=== PATIENT | male | born 1955 | race Caucasian/White ===

== ENCOUNTER 2021-12-15 19:41 | Emergency (ER) | payer MEDICARE, SELFPAY ==
--- NOTE | 2021-12-15 19:44 | ED.MALEGU ---
HPI - Male Genitourinary General Chief complaint: Urogenital-Male Stated complaint: Urinary Problem Time Seen by Provider: 12/15/21 19:50 Source: patient and RN notes reviewed Mode of arrival: ambulatory Limitations: no limitations History of Present Illness HPI Narrative: 66-year-old male with a history of chronic severe spinal stenosis and hypertension presents to the [facility] with urinary issues for a week and a half States he has had some urinary frequency and groin burning over the last 10 days. Denies any new abdominal pain. No nausea or vomiting. Denies any diarrhea or loss of bowel control Patient has a very unsteady gait, appears nontoxic. Related Data Home Medications Medication Instructions Recorded Confirmed lisinopril 20 mg tablet mg 12/15/21 oxycodone 10 mg tablet mg 12/15/21 Allergies Allergy/AdvReac Type Severity Reaction Status Date / Time No Known Allergies Allergy Unverified 07/24/16 21:21 Review of Systems Review of Systems: All systems reviewed & are unremarkable except as noted in HPI and below Constitutional: Constitutional: Reports no additional constitutional complaints, Denies chills and Denies fever(s) Eyes: Eyes: Reports no additional eye complaints ENT: Reports system reviewed and no additional complaints, except as documented Cardiovascular: Cardiovascular: Reports no additional cardiovascular complaints Respiratory: Respiratory: Reports no additional respiratory complaints Gastrointestinal: Gastrointestinal: Reports no additional gastrointestinal complaints Genitourinary: Genitourinary: Reports as per HPI, Denies testicular pain, Reports urinary frequency and Reports urinary incontinence Musculoskeletal: Musculoskeletal: Reports no additional musculoskeletal complaints Integumentary/Breasts: Skin/Breast: Reports system reviewed and no additional complaints, except as docu Neurologic: Reports system reviewed and no additional complaints, except as documented Psychiatric: Psychiatric: Reports no additional psychiatric complaints Allergic/Immunologic: Allergic/Immunologic: Reports no additional allergic/immunologic complaints PMFSH Past Medical History Medical History Hypertension Spinal stenosis Comments At the time of my signature, I reviewed and agree with the nursing past medical, surgical, social, and family history. There is no relevant family history pertinent to the patient complaint. Exam Const: General: no acute distress, alert and ill appearing chronically Nutritional Appearance: well nourished and obese Orientation/consciousness: patient oriented x3 Limitations: no limitations HENMT: Head: normal to inspection Ears: external ears normal General nose exam: Normal external nose present Eyes: General: appearance normal, both eyes and all related structures Pupils: Equal, round and reactive pupils present Neck: Neck: normal visual inspection, no lymphadenopathy and no meningeal signs Chest: Chest palpation & inspection: normal inspection of the chest Resp: Effort & Inspection: normal respiratory effort and no use of accessory muscles Auscultation: clear to auscultation bilaterally, no crackles, no rales, no rhonchi, no wheezes and diminished lung sounds bilateral throughout Cardio: Rate: regular rate Rhythm: regular rhythm GI: GI Palp: Yes Soft to palpation and No Tenderness to palpation present (GI) Skin: General skin exam: normal color Rashes: no rashes Wounds: no wounds Neuro: General: patient oriented x3, moves all extremities, no meningeal signs and no focal motor deficits Cranial nerves: Yes Equal, round and reactive pupils present Speech: normal speech Gait exam (Neuro): Normal gait present Extrem: General: normal to inspection, full ROM and capillary refill normal Psych: Appearance: grossly normal and well kempt Mental Status: mental status grossly normal Affect: normal
[2021-12-15 19:50] VITALS: BP 153/86; PULSE 95; RESP 20; TEMP 36.7; O2SAT 100
== END 2021-12-15 20:27 | disposition home or self-care (01) ==
PROVIDERS: Emergency Provider Nurse Practitioner
DX: R35.0 Frequency of micturition (principal); R31.9 Hematuria, unspecified; I10 Essential (primary) hypertension; M48.00 Spinal stenosis, site unspecified
CPT/HCPCS: 81003; 99202; G0463

== ENCOUNTER 2023-03-31 12:20 | Outpatient (NON) | payer MEDICARE, SELFPAY ==
[2023-03-31 13:14] LABS: Appearance Urine Clear (Clear); Bilirubin Urine Negative (Negative); Blood Urine Trace-Intact (Negative); Color Urine Light Yellow (Yellow); Glucose Urine UA Negative (Negative); Ketones Urine Negative (Negative); Leukocyte Esterase Ur 1+ (Negative); Nitrate Urine Positive (Negative); Protein Urine Negative (Negative); Specific Grav Ur 1.015 (1.010-1.020); Urobilinogen Urine 0.2 mg/dL (0.2-1.0)
[2023-03-31 13:20] LABS: Add Urine Microscopic? YES; Amorphous Sediment Urine Moderate; Bacteria Urine 3+ /hpf; RBC Urine 0-2 /hpf (0-2); Squamous Epithelial Cell Urine Occasional /hpf (Few); WBC Clumps Urine Present /hpf; WBC Urine 16-20 /hpf (0-3)
== END 2023-03-31 12:21 | disposition home or self-care (01) ==
LOC: CHSLAB 12:22
PROVIDERS: PCP Nurse Practitioner; Visit Provider Nurse Practitioner
DX: R30.9 Painful micturition, unspecified (principal); R53.83 Other fatigue; R41.0 Disorientation, unspecified
CPT/HCPCS: 81001; 87086; 87088

== ENCOUNTER 2023-07-04 12:36 | Outpatient (CLI) | payer MEDICARE, SELFPAY ==
--- NOTE | ~2023-07-04 | CT_ITS ---
EXAMINATION: CT abdomen pelvis wo/w con DATE: 07/04/2023 13:35 INDICATION: Urinary retention TECHNIQUE: Computed tomography (CT) of the abdomen and pelvis was performed without intravenous contr ast. CT of the abdomen and pelvis was then performed with a total of 130 mL Omnipaque-350 intravenous contrast using a double-bolus technique for simultaneous opacification of the renal parenchyma and r enal collecting system. The dose-length product was 2384.99 mGy-cm. COMPARISON: None FINDINGS: Mild dependent atelectasis in the bilateral lower lobes. Mild cardiomegaly. Small amount of atheroscl erotic coronary artery calcifications. No pericardial or pleural effusion. There are few subcentimete r low-attenuation hepatic cyst. Gallbladder, spleen, pancreas and bilateral adrenal glands are normal . Kidneys and ureters are normal with no urolithiasis, hydroureteronephrosis or perinephric/ureteral stranding. Contrast opacifies entire right ureter and the proximal two thirds of the left ureter. No urothelial irregularities identified at the lateral renal collecting systems or contrast opacified po rtions of the ureters. Bladder is normal. Bowels including the appendix are normal. No free intraperi toneal gas or fluid. No pathologically enlarged abdominal or pelvic lymphadenopathy. Mild thoracolumb ar dextrocurvature. Severe lower lumbar spondylosis with mild spondylosis in the more cephalad lumbar and lower thoracic spine. Severe bilateral hip osteoarthritis. IMPRESSION: 1. Normal kidneys, ureters and bladder. No urolithiasis. 2. Mild cardiomegaly. Reviewed, dictated and finalized at location L.
[2023-07-04 13:10] LABS: Estimated Glomerular Filt Rate > 60
== END 2023-07-04 12:37 | disposition home or self-care (01) ==
PROVIDERS: PCP Nurse Practitioner; Visit Provider Urology
DX: R33.9 Retention of urine, unspecified (principal); I51.7 Cardiomegaly
CPT/HCPCS: 36415; 74178; Q9967